=== PATIENT | male | born 1955 | race American Indian/Alaskan Native ===

== ENCOUNTER 2018-07-17 09:30 | Emergency (ER) | payer MEDICARE, MEDICAID ==
[2018-07-17 09:32] VITALS: BMI 20.9
[2018-07-17 09:33] VITALS: TEMP 97.8
--- NOTE | 2018-07-17 09:46 | ED PDOC ---
HPI:STROKE - Time Time: 09:44 - Historian Historian: Patient - Chief Complaint Chief Complaint: other (Drooping left eyelid) - Onset Date: 07/16/18 Time: 12:30 Onset: Hours (21) - Timing Timing: Currently Symptomatic - Location Locate left: Eye - Radiation Radiation: None - Severity of pain Maximum severity:: Mild Pain Scale:: 0 Severity Current: None Pain Scale:: 0 - Exacerbated by Exacerbated by:: Nothing - Relieved by Relieved by:: Nothing - TPA Positive for Contraindication: Yes Reason tPA is not being Administered: SXS 21 hours - Notes: Notes:: Left eyelid droop since 12:30 PM on 07/16. Denies headache, dizziness or peripheral focal weakness. Denies difficulty speaking NIHSS Stroke Scale - Date/Time Evaluation Performed Date Performed: 07/17/18 Time Performed: 09:46 When Was NIHSS Performed: Baseline - How Severe is the Stroke Level of Consciousness: 0=Alert LOC to Questions: 0=Both comments correct LOC to commands: 0=Obeys both correctly Best Gaze: 0=Normal Visual: 0=No visual loss Facial: 0=Normal Motor Arm - Left: 0=No drift Motor Arm - Right: 0=No drift Motor Leg - Left: 0=No drift Motor Leg - Right: 0=No drift Limb Ataxia: 0=Absent Sensory: 0=Normal Best Language: 0=No aphasia Dysarthia: 0=Normal articulation Extinction & Inattention (Neglect): 0=Normal, no object Score: 0 rTPA Inclusion/Exclusion - Refusal of Treatment Patient Refused Treatment: No - Inclusion Criteria for Altepase Patient is 18 years or Older: Yes The Clinical Diagnosis of Ischemic Stroke That is Causing a Potentially Disabling Neurological Deficit: No Time of Onset is Well Established to be Less Than 270 Minute Before Treatment Would Begin: No Risk/Benefit Discussed With Patient/Family Member Present: No Past Medical History Vital Signs: Last Vital Signs Temp 97.8 F 07/17/18 09:32 Pulse 51 L 07/17/18 09:32 Resp 17 07/17/18 09:32 BP 132/81 07/17/18 09:32 Pulse Ox 97 07/17/18 09:32 Primary Care Provider: Michael Baez - Medical History PMH: Anxiety, Asthma (Bronchial Asthma), Bronchitis, Depression, Hepatitis (C), HIV (CD4 count > 1000, undetectable viral load), Malignancy (Esophageal Ca) Other PMH: Bradycardia - Family History Family History: States: Unknown Family Hx - Immunization History Hx Tetanus Toxoid Vaccination: Yes Hx Influenza Vaccination: Yes Hx Pneumococcal Vaccination: Yes - Home Medications Home Medications: Ambulatory Orders Medication Instructions Recorded Mirtazapine [Remeron] 30 mg PO DAILY 10/04/12 Lexapro 10 mg PO DAILY 11/24/12 Abacavir/Dolutegravir/Lamivudi 1 tab PO DAILY 11/24/14 [Triumeq 600-50-300 mg Tablet] Abacavir [Ziagen] 300 mg PO BID #0 tab 11/25/14 Escitalopram [Lexapro] 10 mg PO DAILY #0 tab 11/25/14 Levothyroxine [Synthroid] 12.5 mcg PO DAILY@0630 #0 tab 11/25/14 Levothyroxine [Synthroid] 12.5 mg PO DAILY #30 tab 11/25/14 - Allergies Allergies/Adverse Reactions: Allergies Allergy/AdvReac Type Severity Reaction Status Date / Time No Known Allergies Allergy Verified 07/17/18 09:39 Review of Systems ROS Statement: Except As Marked, All Systems Reviewed And Found Negative Neurological: Positive for: Weakness (Left eyelid drooping) Physical Exam - Reviewed Nursing Documentation Reviewed: Yes Vital Signs Reviewed: Yes - Physical Exam Appears: Positive for: Non-toxic, No Acute Distress Head Exam: Positive for: ATRAUMATIC, NORMAL INSPECTION, NORMOCEPHALIC Skin: Positive for: Normal Color, Warm, DRY Eye Exam: Positive for: Normal appearance, EOMI, PERRL, Other (No droop noted. No facial asymetry) ENT: Positive for: Normal ENT Inspection Neck: Positive for: Normal, Painless ROM Cardiovascular/Chest: Positive for: Regular Rate, Rhythm, Bradycardia Respiratory: Positive for: CNT, Normal Breath Sounds Gastrointestinal/Abdominal: Positive for: Normal Exam, Soft Back: Positive for: Normal Inspection Extremity: Positive for: Normal ROM Neurological/Psych: Positive for: Awake, Alert, Normal Tone. Negative for: Motor/Sensory Deficits, Facial Droop - ECG O2 Sat by Pulse Oximetry: 97 Medical Decision Making Medical Decision Making: Discussed with Dr. Hernandes. Given abscence of objective findings with NIHSS of [address], can be discharged with outpt follow up EKG shows Sinus bradycardia at 41. Pt has PMH of bradycardia with prior EKG with HR 51 Disposition - Clinical Impression Clinical Impression: Eye strain - Patient ED Disposition Is Patient to be Admitted: No Counseled Patient/Family Regarding: Studies Performed, Diagnosis, Need For Followup - Disposition Referrals: Jd Hernandes MD [Medical Doctor] - [facility] [place] [Outside] Disposition: Routine/Home Disposition Time: 11:32 Condition: FAIR Instructions: Eyestrain, Bradycardia Forms: [facility] ([place]an)
--- NOTE | 2018-07-17 11:27 | CT ---
Date of service: 07/17/2018 PROCEDURE: CT HEAD WITHOUT CONTRAST. HISTORY: Left eye lid droop COMPARISON: 11/24/2014. CT head TECHNIQUE: Axial computed tomography images were obtained through the head/brain without intravenous contrast. Supplemental Coronal and Sagittal projections created and reviewed. Radiation dose: Total exam DLP = 765.68 mGy-cm. This CT exam was performed using one or more of the following dose reduction techniques: Automated exposure control, adjustment of the mA and/or kV according to patient size, and/or use of iterative reconstruction technique. FINDINGS: HEMORRHAGE: No intracranial hemorrhage. BRAIN: No mass effect or edema. Cortical and cerebellar atrophy, periventricular small vessel disease. Incidental finding(s): Cerebellar and basal ganglia calcifications unchanged. VENTRICLES: Unremarkable. No hydrocephalus. CALVARIUM: Unremarkable. PARANASAL SINUSES: Unremarkable as visualized. No significant inflammatory changes. MASTOID AIR CELLS: Unremarkable as visualized. No inflammatory changes. OTHER FINDINGS: None. IMPRESSION: No acute intracranial abnormalities. No significant findings to account for the clinical presentation. No significant interval change compared to the prior examination(s). Additional benign and/or incidental findings described above.
[2018-07-17 11:39] VITALS: BP 139/80; PULSE 53; RESP 18; O2SAT 99
--- NOTE | 2018-07-17 17:16 | CARD ---
APPROVED REPORT Date of service: 07/17/2018 EKG Measurement Heart [id number] [id number] <Conclusion> Marked sinus bradycardia Abnormal ECG
== END 2018-07-17 12:15 | disposition home or self-care (01) ==
LOC: H.ER 09:30
DX: H53.10 Unspecified subjective visual disturbances (principal); Z86.59 Personal history of other mental and behavioral disorders; H02.402 Unspecified ptosis of left eyelid; J45.909 Unspecified asthma, uncomplicated; Z85.01 Personal history of malignant neoplasm of esophagus